=== PATIENT | female | born 1995 | race Caucasian/White ===

== ENCOUNTER 2017-02-08 03:17 | Emergency (ER) | payer MEDICAID ==
[~2017-02-08] VITALS: Ht 170.2 cm; Wt 63.5 kg
[2017-02-08 04:05] LABS: *BILIRUBIN,URIN NEGATIVE (NEGATIVE); *BLOOD, URINE NEGATIVE (NEGATIVE); *CLARITY,URINE CLEAR (CLEAR); *COLOR,URINE YELLOW (YELLOW); *KETONES,URINE NEGATIVE (NEGATIVE); *PROTEIN,URINE NEGATIVE (NEGATIVE); *UROBILINOGEN,URINE 0.2 E.U./dl (NORMAL); LEUKOCYTE ESTERASE ,URINE 1+ (NEGATIVE); NITRITE, URINE NEGATIVE (NEGATIVE); UGLUCOSE NEGATIVE (NEGATIVE)
[2017-02-08 04:13] LABS: BACTERIA,URINE MODERATE /HPF (NONE SEEN); RBC,URINE 0-3 /HPF (0-3); WBC,URINE 20-50 /HPF (0-3)
[2017-02-08 04:14] LABS: *URINE HCG, QUAL NEGATIVE (NEGATIVE); SQUAMOUS EPITHELIAL CELL,UR MODERATE /HPF (NONE SEEN)
[2017-02-08] MEDS ORDERED: PHENAZOPYRIDINE HCL 100 MG TABLET PO ONE (04:30)
[2017-02-08] MEDS ORDERED: SULFAMETH/TRIMETH 800/160 MG TABLET PO ONE (04:30)
--- NOTE | 2017-02-08 04:30 | NUR ---
Patient discharged to home in stable conditon. Rx given. Written and verbal after care instructions given. Patient verbalizes understanding of instructions.
[2017-02-08] MEDS ORDERED: SULFAMETH/TRIMETH 800/160 MG TABLET ONE (04:35)
[2017-02-08] MEDS ORDERED: PHENAZOPYRIDINE HCL 100 MG TABLET ONE (04:35)
[2017-02-08 04:40] VITALS: BP 117/84
== END 2017-02-08 04:35 | disposition home or self-care (01) ==
LOC: ER 03:17
DX: N39.0 Urinary tract infection, site not specified (principal); F10.20 Alcohol dependence, uncomplicated; F17.200 Nicotine dependence, unspecified, uncomplicated
CPT/HCPCS: 81001; 84703; 99283; A4663